=== PATIENT | male | born 1960 | race Caucasian/White ===

== ENCOUNTER 2017-03-19 18:28 | Emergency (ER) | payer BC ==
[2017-03-19 18:36] VITALS: BP 134/89
--- NOTE | 2017-03-19 19:22 | UC ---
jesus Hernandez Timothy, scribed for Gilberto Reyes MD on 03/19/17 at 1845 . General HPI - HPI Summary HPI Summary: Sivakumar Cabrera is a 56 yo male presenting to [facility] with 5/10 throbbing ache in his right restorationism and behind his right eye, through his jaw to his right ear and then into his throat with general malaise since last night. He states his pain increases when he is chewing. He denies any dental pain. He denies any back pain , congestion, drainage from his ear, or any trauma. He has self-medicated with ibuprofen and tylenol with moderate relief. He notes there is a possibility he was bit by a tick, although he has not found one on his body recently. His MHx includes obstructive bowel, abd surgery, diverticular disease, depression, anxiety. - History of Current Complaint Stated Complaint: HEAD PAIN Time Seen by Provider: 03/19/17 18:40 Hx Obtained From: Patient Onset/Duration: Gradual Onset, Lasting Hours, Still Present Timing: Constant Onset Severity: Moderate Current Severity: Moderate Pain Intensity: 5 Pain Location at: right restorationism, behind right eye, right ear, right side of throat Character: throbbing Aggravating: chewing Associated Signs & Symptoms: Positive: Headache - Allergy/Home Medications Allergies/Adverse Reactions: Allergies Allergy/AdvReac Type Severity Reaction Status Date / Time No Known Allergies Allergy Verified 03/19/17 18:36 PMH/Surg Hx/FS Hx/Imm Hx Other GI/ History: obstructive bowel, diverticular disease Psychological History: Anxiety, Depression - Surgical History Surgical History: Yes Surgery Procedure, Year, and Place: LAPAROTOMY, CECECTOMY, SMALL BOWEL RESECTION (March 2015, [facility] – [place]). PART OF LARGE INTESTINE TAKEN OUT IN [place] 2015 - Family History Known Family History: Positive: Cardiac Disease, Hypertension, Diabetes Negative: Other - no known GI malignancies. Sister of mets [place] with unknown origin - Social History Alcohol Use: Daily Alcohol Amount: pt states "a couple of drinks a day lately" Substance Use Type: None Smoking Status (MU): Never Smoked Tobacco - Immunization History Most Recent Influenza Vaccination: Not in the past season Most Recent Tetanus Shot: UNK Most Recent Pneumonia Vaccination: Never Review of Systems Constitutional: Other - general malaise Skin: Negative Eyes: Negative ENT: Sore Throat, Ear Ache - right Respiratory: Negative Cardiovascular: Negative Gastrointestinal: Negative Genitourinary: Negative Motor: Negative Neurovascular: Negative Musculoskeletal: Negative Neurological: Negative Psychological: Negative All Other Systems Reviewed And Are Negative: Yes Physical Exam Triage Information Reviewed: Yes Vital Signs: Initial Vital Signs Temp 98.4 F 03/19/17 18:30 Pulse 47 03/19/17 18:30 Resp 18 03/19/17 18:30 BP 134/89 03/19/17 18:30 Pulse Ox 100 03/19/17 18:30 Vital Signs Reviewed: Yes - Additional Comments The patient is well-nourished in no acute distress and in no acute pain. The skin is warm and dry and skin color reflects adequate perfusion. HEENT: The head is normocephalic and atraumatic. The pupils are equal and reactive. The conjunctivae are clear and without drainage. Nares are patent and without drainage. Mouth reveals moist mucous membranes and the throat is without erythema and exudate. The external ears are intact. The ear canals are patent and without drainage. The tympanic membranes are intact bilaterally. No mastoid tenderness. No tragal tenderness of the right ear. No debris in the right ear canal. Marked tenderness on the right TMJ joint. No fluctuance and no erythema. Teeth are in good repair. No facial tenderness otherwise. No sinus tenderness. Neck is supple with full range of motion and non-tender. There are no carotid bruits. There is no neck vein distension. Right cervical adenopathy. Respiratory: Chest is non-tender. Lungs are clear to auscultation and breath sounds are symmetrical and equal. Cardiovascular: Heart is regular rate and rhythm. There is no murmur or rub auscultated. There is no peripheral edema and pulses are symmetrical and equal. Abdomen: No CVA tenderness Musculoskeletal: There is no back pain noted. Extremities are non-tender with full range of motion. Neurological: Patient is alert and oriented to person, place and time. The patient has symmetrical motor strength in all four extremities. Cranial nerves are grossly intact. Deep tendon reflexes are symmetrical and equal in all four extremities. Psychiatric: The patient has an appropriate affect and does not exhibit any anxiety or depression. Course/Dx - Course Course Of Treatment: Sivakumar Cabrera is a 56 yo male presenting to [facility] with 5/10 pain extending through his jaw from behind his right eye to his ear to his throat since yesterday. Pt medication list reviewed this visit. After clinical examination, he will be discharged with sinus infection and TMJ tenderness with appropriate instruction. - Differential Dx - Multi-Symptom Differential Diagnoses: Other - sinus infection, lyme disease, otitis media, mastioditis Provider Diagnoses: Sinus infection, TMJ tenderness Discharge - Discharge Plan Condition: Stable Disposition: HOME Prescriptions: DOXYcycline CAP(*) [DOXYcycline 100MG CAP(*)] 100 mg PO BID #20 cap Patient Education Materials: Sinusitis (ED) Referrals: [facility] [Provider Group] - 2 Days Additional Instructions: Please follow up with your primary care physician regarding your visit to urgent care today. Return to urgent care or the emergency department with any new or recurring symptoms. The documentation as recorded by the jesus suh Timothy accurately reflects the service I personally performed and the decisions made by , Gilberto Reyes MD.
--- NOTE | 2017-03-22 12:24 | ED ---
Progress - Progress Note Progress Note: NEGATIVE FOR LYME DISEASE. D/C DOXYCYCLINE. Course/Dx - Course Course Of Treatment: Sivakumar Cabrera is a 56 yo male presenting to [facility] with 5/10 pain extending through his jaw from behind his right eye to his ear to his throat since yesterday. Pt medication list reviewed this visit. After clinical examination, he will be discharged with sinus infection and TMJ tenderness with appropriate instruction. - Diagnoses Provider Diagnoses: Rash
== END 2017-03-19 19:13 | disposition home or self-care (01) ==
LOC: UCEAST 18:28
DX: J32.9 Chronic sinusitis, unspecified (principal); M26.69 Other specified disorders of temporomandibular joint; F10.10 Alcohol abuse, uncomplicated
CPT/HCPCS: 86618; 99212; G0463

== ENCOUNTER → 2019-07-11 05:42 | Day surgery (SDC) | payer BC ==
[~2019-07-11 05:42] MED LIST: Buffered Lidocaine 1% SYRIN* 1 ML/SYRINGE INTRADERM ONE; Bupivacaine 0.25% SDV PF* 10 ML VIAL INJ ONE; Dexamethasone IV* 4 MG/ML 1 ML (4 MG) IV SLOW PU ONE; Dexamethasone IV* 4 MG/ML 1 ML (4 MG) ONE; DiMENhydriNATE IV* 50 MG/ML VIAL IV PUSH PRN; EPHEDrine (Pressors)* 50 MG/ML VIAL ONE; Famotidine IV* 10 MG/ML 2 ML (20 mg) IV ONE; Famotidine IV* 10 MG/ML 2 ML (20 mg) ONE; Glycopyrrolate IV* 0.2 MG/ML 1 ML VIAL ONE; HYDROcodone/ACETAMIN 5-325 MG* 1 TAB ONE; Ketorolac INJ* 30 MG/ML 1 ML VIAL ONE; Lactated Ringers 1000 ML Bag* 1,000 ML IV SCH; Lidocaine 2% PF * 5 ML VIAL ONE; Naloxone* 0.4 MG/ML 1 ML VIAL IV PRN; Ondansetron INJ* 2 MG/ML VIAL ONE; Propofol* 10 MG/ML 20 ML BTL ONE; ceFAZolin 2 GM PREMIX in ORs 2 GM/50 ML BAG ONE; fentaNYL* 50 MCG/ML 2 ML VIAL (100 MCG VIAL) IV PRN; fentaNYL* 50 MCG/ML 2 ML VIAL (100 MCG VIAL) ONE
[2019-07-11 11:17] VITALS: BP 116/68
--- NOTE | 2019-07-11 12:41 | OP ---
OPERATIVE REPORT: DATE OF OPERATION: 07/11/19 DATE OF : 58 SURGEON: Wia Manuel MD. MACHINE SETTER AUTOMATIC: KAREN Rm An certified anesthesiologist assistant was needed for the procedure to aid in positioning of the arm and retraction. ANESTHESIOLOGIST: Dr. Gee. ANESTHESIA: General. PRE-OP DIAGNOSIS: Left thumb carpometacarpal degenerative joint disease. POST-OP DIAGNOSIS: Left thumb carpometacarpal degenerative joint disease. OPERATIVE PROCEDURE: 1. Left thumb carpometacarpal arthroplasty with trapeziectomy and Arthrex Mini TightRope suspension. 2. Distally based flexor carpi radialis split tendon transfer for thumb suspension and tendon interp osition. ESTIMATED BLOOD LOSS: 2 mL. COMPLICATIONS: None. FINDINGS: See above and elbow. DESCRIPTION OF PROCEDURE: Mr. Cabrera was seen in the preoperative holding area. The correct side, sit e, and procedure were identified. We came back to the operating room, the arm was prepped and draped in the usual fashion. A time-out was performed. The arm was exsanguinated with the Esmarch and the tourniquet was inflated to 225 mmHg. I made a 2 t o 3 cm incision over the dorsal radial thumb base. Dissection was carried down longitudinally. The fascia overlying the radial artery was released and the radial artery was mobilized. There was a per forator that was tied off with some 4-0 Vicryl suture. I raised subperiosteal and capsular flaps to expose the trapezium in its entirety. Soft tissue was released around the trapezium. I then excise d the trapezium in its entirety in piecemeal fashion with the rongeur. The scaphotrapezoid joint loo ked like a good articular cartilage. The distal pole of the scaphoid and trapezoid all had good carti stevan about them. I then used sequentially larger drill bits to make a bone tunnel from the dorsal ra dial thumb metacarpal base exiting out the volar ulnar articular surface. I then made a 1 cm incision over the dorsal ulnar aspect of the second metacarpal base. The sensory nerve was mobilized, subperiosteal flap was raised to expose the dorsal ulnar aspect of the second me tacarpal. The guidewire for the Mini TightRope device was introduced in the appropriate location fro m the base of the first metacarpal and now at the dorsal ulnar aspect of second metacarpal. I then s huttled the Mini TightRope FiberWire suture through the bone tunnel using the nitinol wire docking th e end of the button onto the dorsal ulnar base of the second metacarpal straight on the bone without any interposed soft tissue. We then turned our attention to the tendon transfer. I made a 1 cm transverse incision over the dist al FCR tendon just proximal to the wrist flexion crease. Two additional 1 cm incisions were made at intervals proximal to that, the last being up in the musculotendinous junction. The tendon sheath wa s released. The tendon was brought up out of the distal wound. It was split longitudinally with 15 blade and a 26-gauge wire was passed into the tendon split. The sheath was released along the entire ty of the FCR tendon. I then used a Theresa clamp to pull the 26- gauge wire into the more proximal wo unds sequentially. I released half the tendon at musculotendinous junction. I then used the two 26- gauge wires to shuttle the other half the tendon down into the thumb base wound. The tendon split wa s taken all the way down at the base of the second metacarpal. The free end of the tendon was then s huttled through the bone tunnel using the wire as a tendon passer. It was then taken back around the intact limb at the tendon. Maximum tension was set as the tendon transfer secured with multiple fig [id number] 3-0 Ethibond sutures. I then rolled up the remainder of the tendon into a ball and secur ed that with a 3- 0 Ethibond suture and docked that between the base of the metacarpal and the distal pole of the scaphoid and trapezoid. Lastly, I set appropriate tension and tied up my Arthrex Mini TightRope suture over a second Endobutt on placed on the dorsoradial aspect of the metacarpal base. Once I had set appropriate tension, I fi nished off tying it up with multiple square knots. At this point, everything was looking very good. We irrigated out the wounds. The capsule was closed with 4-0 Vicryl suture. I did bury the knot of the FiberWire underneath that capsular and periosteal closure. The skin was all closed with 4-0 nyl on suture. A 0.25% Marcaine was infiltrated around all of the wounds. All the wounds were dressed wi th Xeroform, 4x4, sterile Webril, and then a thumb spica splint with the DIP joint free was applied. He was taken to the recovery room in stable condition. [id number]/[facility] #: [id number]
== END | disposition home or self-care (01) ==
LOC: OR 05:42
PROVIDERS: ATTEND Orthopaedic Surgery Hand Surgery
DX: M18.12 Unilateral primary osteoarthritis of first carpometacarpal joint, left hand (principal); G47.33 Obstructive sleep apnea (adult) (pediatric); F41.8 Other specified anxiety disorders
CPT/HCPCS: 88304; 88311; C1776; J0690; J1100; J1885; J2405; J2704; J3010; J3490